=== PATIENT | female | born 1975 | race Caucasian/White ===

== ENCOUNTER 2020-06-27 14:28 | Emergency (ER) | payer BC ==
--- NOTE | 2020-06-27 16:12 | EDM.PDOC ---
ED HPI GENERAL MEDICAL PROBLEM - General Chief Complaint: Skin Complaint Stated Complaint: MULTIPLE ISSUES Time Seen by Provider: 06/27/20 14:42 Source of Information: Reports: Patient History Limitations: Reports: No Limitations - History of Present Illness INITIAL COMMENTS - FREE TEXT/NARRATIVE: Patient is a 45 year old female presenting to the ER with c/o a 4 day history of superficial pain to the back of her bilateral arms, down the sides of her rib cage, and into her posterior shoulder blades. The symptoms resolved on her lift side and have improved on the right side. At this time, she has superficial tingling and sensitivity, as well as some muscle tenderness to her posterior right arm and into her right shoulder blade. She states that she had a knot type pain in her right lower rib cage earlier today which resolved quickly. She denies any history of shingles. She has no rashes. Patient is concerned that she could be having cardiac symptoms and wants to be assured that if she goes to sleep she will wake up. She has been on gabapentin in the past and states that she does not do well with it so she would not like to start that here. She does have an appointment scheduled with her primary care provider in 6 days. Denies any chest pain or shortness of breath. She is had no fever or chills. Right Upper Arm Pain Score (Numeric/FACES): 5 - Related Data Allergies Allergy/AdvReac Type Severity Reaction Status Date / Time acetaminophen Allergy Severe Itching Verified 06/27/20 14:43 [From Darvocet-N 100] propoxyphene Allergy Severe Itching Verified 06/27/20 14:43 [From Darvocet-N 100] Past Medical History Cardiovascular History: Reports: High Cholesterol, Hypertension Neurological History: Reports: Other (See Below) Other Neuro History: brain tumor removed-benign Endocrine/Metabolic History: Reports: Diabetes, Type II Oncologic (Cancer) History: Reports: Hodgkin's Lymphoma, Other (See Below) Other Oncologic History: stem cell transplant;chemotherapy Social & Family History - Tobacco Use Tobacco Use Status *Q: Current Every Day Tobacco User Years of Tobacco use: 15 Packs/Tins Daily: 1 - Caffeine Use Caffeine Use: Reports: Coffee, Soda - Recreational Drug Use Recreational Drug Use: Yes Recreational Drug Type: Reports: Marijuana/Hashish ED ROS GENERAL - Review of Systems Review Of Systems: See Below Constitutional: Reports: No Symptoms. Denies: Fever, Chills, Weakness HEENT: Reports: No Symptoms Respiratory: Reports: No Symptoms. Denies: Shortness of Breath, Cough Cardiovascular: Reports: No Symptoms. Denies: Chest Pain, Dyspnea on Exertion, Syncope Endocrine: Reports: No Symptoms GI/Abdominal: Reports: No Symptoms : Reports: No Symptoms Musculoskeletal: Reports: Other (Muscle pain in her right upper back near the shoulder blade. Superficial nerve pain to her right posterior arm and into her right upper back.) Skin: Reports: No Symptoms Neurological: Reports: No Symptoms Psychiatric: Reports: No Symptoms Hematologic/Lymphatic: Reports: No Symptoms Immunologic: Reports: No Symptoms ED EXAM, SKIN/RASH Exam: See Below General Appearance: Alert, WD/WN, No Apparent Distress Respiratory/Chest: No Respiratory Distress, Lungs Clear, Normal Breath Sounds, No Accessory Muscle Use, Chest Non-Tender Cardiovascular: Normal Peripheral Pulses, Regular Rate, Rhythm, No Edema, No Gallop, No JVD, No Murmur, No Rub GI/Abdominal: Normal Bowel Sounds, Soft, Non-Tender, No Organomegaly, No Distention, No Abnormal Bruit, No Mass Extremities: Other (There is to palpation of the right upper posterior arm and into the right upper back near the shoulder blade. No rash, edema, or erythema noted.) Neurological: Alert, Oriented, CN II-XII Intact, Normal Cognition, Normal Gait, Normal Reflexes, No Motor/Sensory Deficits Psychiatric: Normal Affect, Normal Mood Skin: Warm, Dry, Intact, Normal Color, No Rash Course - Vital Signs Last Recorded V/S: Last Vital Signs Temp 96.2 F L 06/27/20 14:46 Pulse 96 06/27/20 14:46 Resp 20 06/27/20 14:46 BP 117/95 H 06/27/20 14:46 Pulse Ox 98 06/27/20 14:46 - Orders/Labs/Meds Orders: Active Orders 24 hr Category Date Time Status EKG Documentation Completion [RC] STAT Care 06/27/20 15:07 Active Labs: Laboratory Tests 06/27/20 06/27/20 Range/Units 15:24 15:24 WBC 12.93 H (3.98-10.04) K/mm3 RBC 4.87 (3.98-5.22) M/mm3 Hgb 13.3 (11.2-15.7) gm/dl Hct 41.8 (34.1-44.9) % MCV 85.8 (79.4-94.8) fl MCH 27.3 (25.6-32.2) pg MCHC 31.8 L (32.2-35.5) g/dl RDW Std Deviation 45.1 (36.4-46.3) fL Plt Count 393 H (182-369) K/mm3 MPV 10.2 (9.4-12.3) fl Neut % (Auto) 60.5 (34.0-71.1) % Lymph % (Auto) 30.5 (19.3-51.7) % [place] % (Auto) 7.3 (4.7-12.5) % Eos % (Auto) 1.0 (0.7-5.8) Baso % (Auto) 0.3 (0.1-1.2) % Neut # (Auto) 7.81 H (1.56-6.13) K/mm3 Lymph # (Auto) 3.95 H (1.18-3.74) K/mm3 [place] # (Auto) 0.95 H (0.24-0.36) K/mm3 Eos # (Auto) 0.13 (0.04-0.36) K/mm3 Baso # (Auto) 0.04 (0.01-0.08) K/mm3 Manual Slide Review Normal smear Sodium 137 (136-145) mEq/L Potassium 4.5 (3.5-5.1) mEq/L Chloride 99 (98-107) mEq/L Carbon Dioxide 25 (21-32) mEq/L Anion Gap 17.5 H (5-15) BUN 15 (7-18) mg/dL Creatinine 1.0 (0.55-1.02) mg/dL Est Cr Clr Drug Dosing 61.35 mL/min Estimated GFR (MDRD) 60 (>60) mL/min BUN/Creatinine Ratio 15.0 (14-18) Glucose 225 H (74-106) mg/dL Calcium 9.8 (8.5-10.1) mg/dL Total Bilirubin 0.3 (0.2-1.0) mg/dL AST 38 H (15-37) U/L ALT 76 H (14-59) U/L Alkaline Phosphatase 117 H (46-116) U/L Troponin I < 0.017 (0.00-0.056) ng/mL Total Protein 7.6 (6.4-8.2) g/dl Albumin 3.9 (3.4-5.0) g/dl Globulin 3.7 gm/dL Albumin/Globulin Ratio 1.1 (1-2) - Re-Assessments/Exams Free Text/Narrative Re-Assessment/Exam: Patient is a 45-year-old female presenting to the emergency department with what appears to be symptoms of neuropathy. She is concerned that she could be having a cardiac event. My suspicion for this is quite low, however we will complete a cardiac work-up including a CBC, CMP, CRP, troponin, EKG. Symptoms are gradually improving and she does not want to start gabapentin. So this is all found to be normal, we will discharge her home with instructions to follow- up with her primary care provider in 6 days to discuss further management if symptoms have not resolved by that time. 06/27/20 16:53 Patient's work-up was grossly unremarkable. EKG showed no acute ischemia. Troponin was negative. We will discharge her home with instructions to follow- up with her PCP. Discharge instructions as documented. Departure - Departure Time of Disposition: 16:54 Disposition: Home, Self-Care 01 Condition: Good Clinical Impression: Nerve pain - Discharge Information *PRESCRIPTION DRUG MONITORING PROGRAM REVIEWED*: No *COPY OF PRESCRIPTION DRUG MONITORING REPORT IN PATIENT JERAMY: No Instructions: Neuropathic Pain Referrals: PCP,Not In Area [Primary Care Provider] - Forms: ED Department Discharge Additional Instructions: You were seen in the emergency department today for what is likely neuropathic pain in your right upper arm and right upper back. A cardiac work-up was completed including blood work and an EKG of your heart. This is found to be normal. There is no signs that you are having any type of cardiac ischemia or heart attack. Recommend that you follow-up with your primary care provider as scheduled. If you should experience any worsening symptoms, please do not hesitate to return to the emergency department. Sepsis Event Note (ED) - Evaluation Sepsis Screening Result: No Definite Risk - Focused Exam Vital Signs: Vital Signs Temp Pulse Resp BP Pulse Ox 06/27/20 14:46 96.2 F L 96 20 117/95 H 98 - My Orders Last 24 Hours: My Active Orders 06/27/20 15:07 EKG Documentation Completion [RC] STAT - Assessment/Plan Last 24 Hours: My Active Orders 06/27/20 15:07 EKG Documentation Completion [RC] STAT
== END 2020-06-27 17:05 | disposition home or self-care (01) ==
LOC: JD.ED 14:28
DX: M79.2 Neuralgia and neuritis, unspecified (principal); I10 Essential (primary) hypertension; E11.9 Type 2 diabetes mellitus without complications; F17.210 Nicotine dependence, cigarettes, uncomplicated; Z88.6 Allergy status to analgesic agent
CPT/HCPCS: 36415; 80053; 84484; 85025; 93005; 93010; 99283; 99283-25